=== PATIENT | female | born 1980 | race Hispanic/Latino ===

== ENCOUNTER 2024-07-24 08:33 | Inpatient (IN) | payer MEDICARE ==
[~2024-07-24] VITALS: Ht 165.1 cm; Wt 63.5 kg
[2024-07-24] VITALS (8 sets, daily range): BP systolic 113–131; BP diastolic 73–77; PULSE 73–100; RESP 16–20; TEMP 98.7–100.1; O2SAT 95–99
[2024-07-24 08:47] LABS: BASOPHILS % 0.3 % (0.0-1.0); EOSINOPHILS % 0.1 % (0.0-6.0); HEMATOCRIT 36.6 % (34.2-44.1); HEMOGLOBIN 11.8 g/dL (12.0-16.0); LYMPHOCYTES # (AUTO) 0.9 (1.0-3.2); LYMPHOCYTES % 6.5 % (18.0-39.1); MEAN CORPUSCULAR HEMOGLOBIN 25.1 pg (28-32); MEAN CORPUSCULAR HGB CONC 32.2 g/dL (31-35); MEAN CORPUSCULAR VOLUME 77.9 fL (81-99); MONOCYTES # (AUTO) 0.7 (0.2-0.8); MONOCYTES % 5.1 % (4.4-11.3); NEUTROPHILS # (AUTO) 12.2 (2.1-6.9); NEUTROPHILS % 87.7 % (38.7-80.0); PLATELET COUNT 236 x10e3/uL (140-360); RED CELL DISTRIBUTION WIDTH 23.6 % (11.7-14.4); WHITE BLOOD COUNT 13.94 x10e3/uL (4.8-10.8)
[2024-07-24] MEDS: SODIUM CHLORIDE 0.9% 1000ML 1,000 ML IV STA (08:59)
[2024-07-24] MEDS: FENTANYL CITRATE/PF 100MCG/2 ML INJ IV PRN (09:00)
[2024-07-24] MEDS: ONDANSETRON HCL INJ 2MG/ML 2ML 2 MG/ML VIAL IV PRN (09:00)
[2024-07-24 09:11] LABS: ALBUMIN 4.8 g/dL (3.5-5.0); ALBUMIN/GLOBULIN RATIO 1.3 (0.8-2.0); ANION GAP 17.8 mmol/L (8-16); BILIRUBIN,TOTAL 1.7 mg/dL (0.2-1.2); CALCIUM 9.3 mg/dL (8.4-10.2); CREATININE, SERUM 0.68 mg/dL (0.57-1.11); POTASSIUM 3.8 mmol/L (3.5-5.1); TOTAL PROTEIN 8.5 g/dL (6.5-8.1)
[2024-07-24] MEDS: Morphine 4mg INJECTION 4 MG/ML INJ IV ONE (11:17)
[2024-07-24] MEDS ORDERED: SODIUM CHLORIDE 0.9% 1000ML 1,910 ML IV SCH (11:30)
[2024-07-24] MEDS ORDERED: ONDANSETRON HCL INJ 2MG/ML 2ML 2 MG/ML VIAL IV PRN (11:45)
[2024-07-24] MEDS: SODIUM CHLORIDE 0.9% 1000ML 1,000 ML IV SCH (13:51)
[2024-07-24] MEDS: METRONIDAZOLE 750MG/NS 150ML 150 ML IV SCH (15:54)
[2024-07-24] MEDS: Morphine 4mg INJECTION 4 MG/ML INJ IV PRN (15:54)
[2024-07-24] MEDS ORDERED: ZOLPIDEM TARTRATE 5 MG TAB PO PRN (21:00)
[2024-07-24] MEDS: CEFTRIAXONE 2 GM in SODIUM CHLORIDE 0.9% 100 ML IV SCH (22:01)
[2024-07-24] MEDS ORDERED: ACETAMINOPHEN 650 MG SUPP PR PRN (22:15)
[2024-07-24] MEDS: ACETAMINOPHEN 325 MG TAB PO PRN (22:23)
[2024-07-25] VITALS (9 sets, daily range): BP systolic 94–114; BP diastolic 57–77; PULSE 92–123; RESP 17–22; TEMP 97.6–98.9; O2SAT 96–100
[2024-07-25 03:54] LABS: BILIRUBIN,URINE NEGATIVE (NEGATIVE); CLARITY,URINE SL CLOUDY (CLEAR); COLOR,URINE YELLOW (YELLOW); GLUCOSE, URINE NEGATIVE (NEGATIVE); KETONES,URINE 2+ (NEGATIVE); LEUKOCYTE ESTERASE ,URINE TRACE (NEGATIVE); NITRITE,URINE POSITIVE (NEGATIVE); PH,URINE 6 (5 - 7); PROTEIN,URINE DIPSTICK 1+ (NEGATIVE); URINE UROBILINOGEN 1 mg/dL (0.2 - 1)
[2024-07-25 04:11] LABS: BACTERIA,URINE MANY /HPF; EPITHELIAL CELLS,URINE MANY /LPF; MUCUS,URINE FEW; WBC,URINE (MAN) >50 /HPF (0-5)
[2024-07-25 04:12] LABS: RENAL EPITHELIAL CELLS,URINE FEW; TRANSITIONAL EPI CELLS,URINE MODERATE
[2024-07-25 05:40] LABS: BASOPHILS # (AUTO) 0.1 (0.0-0.1); BASOPHILS % 0.2 % (0.0-1.0); EOSINOPHILS % 0.1 % (0.0-6.0); HEMATOCRIT 33.4 % (34.2-44.1); HEMOGLOBIN 10.8 g/dL (12.0-16.0); LYMPHOCYTES # (AUTO) 0.9 (1.0-3.2); LYMPHOCYTES % 4.5 % (18.0-39.1); MEAN CORPUSCULAR HEMOGLOBIN 25.3 pg (28-32); MEAN CORPUSCULAR HGB CONC 32.3 g/dL (31-35); MEAN CORPUSCULAR VOLUME 78.2 fL (81-99); MONOCYTES # (AUTO) 1.7 (0.2-0.8); NEUTROPHILS # (AUTO) 17.9 (2.1-6.9); NEUTROPHILS % 86.2 % (38.7-80.0); PLATELET COUNT 196 x10e3/uL (140-360); RED BLOOD COUNT 4.27 x10e6/uL (3.6-5.1); RED CELL DISTRIBUTION WIDTH 23.9 % (11.7-14.4); WHITE BLOOD COUNT 20.73 x10e3/uL (4.8-10.8)
[2024-07-25 05:49] LABS: INR 1.38; PARTIAL THROMBOPLASTIN TIME 36.5 seconds (23.8-35.5); PROTHROMBIN TIME 18.1 seconds (11.9-14.5)
[2024-07-25 06:00] LABS: ANION GAP 13.9 mmol/L (8-16); CALCIUM 8.3 mg/dL (8.4-10.2); CREATININE, SERUM 0.66 mg/dL (0.57-1.11); POTASSIUM 3.9 mmol/L (3.5-5.1)
[2024-07-25] MEDS ORDERED: LIDOCAINE HCL 2% LOCAL INJ 5 ML SDV VIAL INJ ONE ×2 (10:00→10:05)
[2024-07-25] MEDS ORDERED: ROCURONIUM BROMIDE 1 ML IV ONE ×2 (10:01→11:09)
[2024-07-25] MEDS ORDERED: PROPOFOL IV EMULSION 10 MG/ML 20 ML VIAL ONE (10:01)
[2024-07-25] MEDS ORDERED: SUCCINYLCHOLINE CHLORIDE 20 MG/ML 10ML VIAL ONE (10:01)
[2024-07-25] MEDS ORDERED: FENTANYL CITRATE/PF 100MCG/2 ML INJ ONE (10:01)
[2024-07-25] MEDS ORDERED: KETOROLAC TROMETHAMINE 30 MG/ML VIAL ONE (10:06)
[2024-07-25] MEDS ORDERED: DEXAMETHASONE SOD PHOS INJ 4 MG/ML SDV ONE (10:06)
[2024-07-25] MEDS ORDERED: METOCLOPRAMIDE HCL 10 MG/2ML VIAL ONE (10:06)
[2024-07-25] MEDS ORDERED: ONDANSETRON HCL INJ 2MG/ML 2ML 2 MG/ML VIAL ONE (10:06)
[2024-07-25] MEDS ORDERED: HYDROMORPHONE 2MG/ML ONE (11:14)
[2024-07-25] MEDS ORDERED: SUGAMMADEX SODIUM 200 MG/2 ML VIAL IV ONE ×2 (11:31→12:25)
[2024-07-25] MEDS ORDERED: NALOXONE HCL INJ 0.4 MG/ML AMP ONE (12:31)
[2024-07-25] MEDS: METRONIDAZOLE 500MG/NS 100ML 150 ML IV SCH (23:39)
[2024-07-26] VITALS (9 sets, daily range): BP systolic 106–112; BP diastolic 63–71; PULSE 90–106; RESP 17–21; TEMP 97.7–99.7; O2SAT 97–100
[2024-07-26] MEDS: METRONIDAZOLE 500MG/NS 100ML 0 ML IV ONE (03:09)
[2024-07-27 01:16] VITALS: BP 124/78; PULSE 85; RESP 16; TEMP 98.1; O2SAT 99
[2024-07-27 08:00] VITALS: BP 124/78; PULSE 85; RESP 16; TEMP 98.1; O2SAT 99
[2024-07-27 08:10] VITALS: BP 127/73; PULSE 98; RESP 18; TEMP 98.2; O2SAT 97
[2024-07-27 11:51] VITALS: BP 112/68; PULSE 86; RESP 18; TEMP 98.2; O2SAT 99
[2024-07-27] MEDS ORDERED: CIPRO250 MG PO (13:34)
== END 2024-07-27 14:54 | disposition home or self-care (01) | DRG 419 ==
LOC: ER 08:37 → ERHOLD 11:34 → MED/SURG2 13:35
PROVIDERS: ADMIT Internal Medicine; ATTEND Internal Medicine
PROC: 0FT44ZZ Resection of Gallbladder, Percutaneous Endoscopic Approach (ICD-10-PCS; principal; 2024-07-25 10:49)
DX: K80.00 Calculus of gallbladder with acute cholecystitis without obstruction (principal); D64.9 Anemia, unspecified
CPT/HCPCS: 36415; 76705; 80048; 80053; 81001; 83605; 83690; 84702; 85025; 85610; 85730; 87040; 88304; 94799; 99284; J0330; J0696; J1100; J1171; J1885; J2003; J2270; J2310; J2405; J2470; J2765; J7030; J7050